=== PATIENT | male | born 1975 | race Caucasian/White ===

== ENCOUNTER 2017-03-28 20:52 | Emergency (ER) | payer BC ==
[~2017-03-28] VITALS: Ht 182.9 cm; Wt 90.0 kg
[2017-03-28 21:02] VITALS: BP 114/55; PULSE 104; RESP 22; TEMP 97.8; O2SAT 96
[2017-03-28] MEDS ORDERED: SODIUM CHLOR 0.9% 1000 ML INJ 1,000 ML IV ONE ×2 (21:04→21:34)
[2017-03-28] MEDS ORDERED: SODIUM CHLORIDE 0.9% FLUSH 10 ML FLUSH IVF PRN (21:15)
[2017-03-28] MEDS ORDERED: MORPHINE SULFATE 4 MG/ML INJ IV PUSH ONE (21:15)
--- NOTE | 2017-03-28 21:29 | PD ---
HPI Chief Complaint: Hip Injury Time Seen by Provider: 21:04 Travel History International Travel<30 days: No Contact w/Intl Traveler<30days: No Traveled to known affect area: No History of Present Illness HPI Patient is a 41-year-old diabetic male presents emergency department for evaluation of right hip pain. Patient states that he was rolling over in bed and felt a pop in his right hip has been having some pain and unable to ambulate since. He does endorse drinking fireball tonight is he is here on his honeymoon. Patient states he does have some pain in the left hip secondary to bursitis and some peripheral neuropathy secondary to diabetes. He denies any injury other than rolling in bed. Denies any headache chest pain shortness breath abdominal pain nausea vomiting diarrhea. PFSH Past Medical History Diabetes: Yes Patient Takes Glucophage: No Past Surgical History Surgical History: No Previous Surgery Social History Alcohol Use: Yes (OCC) Tobacco Use: Yes (1PPD) Substance Use: No Allergies-Medications (Allergen,Severity, Reaction): Coded Allergies: No Known Allergies (Unverified , 03/28/17) Review of Systems Except as stated in HPI: all other systems reviewed are Neg Physical Exam Narrative GENERAL: Well-developed well-nourished, lying on his left side, appears in mild discomfort. SKIN: Focused skin assessment warm/dry. HEAD: Atraumatic. Normocephalic. EYES: Pupils equal and round. No scleral icterus. No injection or drainage. ENT: No nasal bleeding or discharge. Mucous membranes pink and moist. NECK: Trachea midline. No JVD. CARDIOVASCULAR: Regular rate and rhythm. No murmur appreciated. RESPIRATORY: No accessory muscle use. Clear to auscultation. Breath sounds equal bilaterally. GASTROINTESTINAL: Abdomen soft, non-tender, nondistended. Hepatic and splenic margins not palpable. MUSCULOSKELETAL: No obvious deformities. No clubbing. No cyanosis. No edema. Minimal tenderness to the right greater trochanter, no tenderness at the knee. No tenderness of the ankle. Pulses motor and sensory intact distally in all 4 extremities. Left lower extremity is atraumatic. NEUROLOGICAL: Awake and alert. No obvious cranial nerve deficits. Motor grossly within normal limits. Normal speech. PSYCHIATRIC: Appropriate mood and affect; insight and judgment normal. Data Data Last Documented VS Vital Signs Date Time Temp Pulse Resp B/P Pulse Ox O2 Delivery O2 Flow Rate FiO2 03/28/17 23:12 90 15 118/76 99 03/28/17 21:02 97.8 Orders Complete Blood Count With Diff (03/28/17 21:04) Comprehensive Metabolic Panel (03/28/17 21:04) Beta Hydroxybutyrate (Acetone) (03/28/17 21:04) Urinalysis - C+S If Indicated (03/28/17 21:04) Blood Glucose (03/28/17 21:04) Ecg Monitoring (03/28/17 21:04) Iv Access Insert/Monitor (03/28/17 21:04) Oximetry (03/28/17 21:04) NPO (03/28/17 21:04) Sodium Chlor 0.9% 1000 Ml Inj (Ns 1000 M (03/28/17 21:04) Sodium Chlor 0.9% 1000 Ml Inj (Ns 1000 M (03/28/17 21:34) Sodium Chloride 0.9% Flush (Ns Flush) (03/28/17 21:15) Morphine Inj (Morphine Inj) (03/28/17 21:15) Alcohol (Ethanol) (03/28/17 21:04) Hip, Uni(Ap&Lat) W Ap Pelvis (03/28/17 ) Crutches (03/28/17 22:59) Labs Laboratory Tests Test 03/28/17 03/28/17 21:30 21:36 White Blood Count 7.9 TH/MM3 Red Blood Count 4.73 MIL/MM3 Hemoglobin 14.7 GM/DL Hematocrit 42.3 % Mean Corpuscular Volume 89.5 FL Mean Corpuscular Hemoglobin 31.2 PG Mean Corpuscular Hemoglobin 34.8 % Concent Red Cell Distribution Width 12.6 % Platelet Count 169 TH/MM3 Mean Platelet Volume 8.1 FL Neutrophils (%) (Auto) 56.7 % Lymphocytes (%) (Auto) 36.4 % Monocytes (%) (Auto) 5.0 % Eosinophils (%) (Auto) 1.7 % Basophils (%) (Auto) 0.2 % Neutrophils # (Auto) 4.5 TH/MM3 Lymphocytes # (Auto) 2.9 TH/MM3 Monocytes # (Auto) 0.4 TH/MM3 Eosinophils # (Auto) 0.1 TH/MM3 Basophils # (Auto) 0.0 TH/MM3 CBC Comment DIFF FINAL Differential Comment Sodium Level 138 MEQ/L Potassium Level 3.9 MEQ/L Chloride Level 100 MEQ/L Carbon Dioxide Level 25.4 MEQ/L Anion Gap 13 MEQ/L Blood Urea Nitrogen 11 MG/DL Creatinine 0.76 MG/DL Estimat Glomerular Filtration 112 ML/MIN Rate Random Glucose 332 MG/DL Calcium Level 8.5 MG/DL Total Bilirubin 0.2 MG/DL Aspartate Amino Transf 18 U/L (AST/SGOT) Alanine Aminotransferase 31 U/L (ALT/SGPT) Alkaline Phosphatase 363 U/L Total Protein 7.0 GM/DL Albumin 3.8 GM/DL Ethyl Alcohol Level 80 MG/DL B-Hydroxybutyrate 0.29 MMOL/L Urine Color LIGHT-YELLOW Urine Turbidity CLEAR Urine pH 5.5 Urine Specific [place] 1.021 Urine Protein NEG mg/dL Urine Glucose (UA) 1000 mg/dL Urine Ketones NEG mg/dL Urine Occult Blood NEG Urine Nitrite NEG Urine Bilirubin NEG Urine Urobilinogen LESS THAN 2.0 MG/DL Urine Leukocyte Esterase NEG Urine WBC 1 /hpf Urine Mucus FEW /lpf Microscopic Urinalysis Comment CULT NOT INDICATED MDM Medical Decision Making Medical Screen Exam Complete: Yes Emergency Medical Condition: Yes Differential Diagnosis Bursitis, hip fracture, hip dislocation seems unlikely, arthritis. Narrative Course Patient 41-year-old male with a history of bursitis in the left hip presents with right hip pain. Atraumatic in nature. The patient x-ray is reassuring. Basic labs were obtained as he has hyperglycemic and does have alcohol on board. His alcohol level is 80. Labs do not show evidence for DKA and are reassuring. The patient was able to ambulate in the emergency department without issue. His arrives and states that their main reason they came is because it is been difficult for him to ambulate and get up off the ground since the event happened. She was requesting some crutches for them to go home with until they return to [place] where they are from where they have more roomed to move around. I am amenable but I have instructed him to get off the crutches as soon as possible. There is no indication further workup at this time and he is stable for discharge. Diagnosis Primary Impression: Right hip pain Disposition: 01 DISCHARGE HOME Condition: Stable Henri Lombardi MD March 28, 2017 21:29
[2017-03-28 21:48] LABS: BLOOD, URINE NEG (NEG); COMMENT (UR) CULT NOT INDICATED; CULTURE IF INDICATED CULT NOT INDICATED; GLUCOSE,URINE 1000 mg/dL (NEG); KETONE, URINE NEG (NEG); MUCUS URINE FEW /lpf (OCC); NITRITE,URINE NEG (NEG); PH, URINE 5.5 (5.0-8.5); URINE COLOR LIGHT-YELLOW (YELLW/STRAW)
--- NOTE | 2017-03-28 22:11 | RADRPT ---
EXAM DATE/TIME: 03/28/2017 21:18 [facility] COMPARISON: No previous studies available for comparison. INDICATIONS : Right hip pain. Patient rolled over in bed and heard a pop. MEDICAL HISTORY : None. SURGICAL HISTORY : None. ENCOUNTER: Initial ACUITY: 1 day PAIN SCORE: 10/10 LOCATION: Right hip. FINDINGS: Examination of the right hip was performed with AP Pelvis. The primary and secondary trabecular mikel bertha of the femoral neck is intact. The hip joint is of normal width without significant sclerosis or bony hypertrophy. The acetabulum is grossly intact. CONCLUSION: Normal examination for a patient of this age. Noman Huff MD on March 28, 2017 at 22:07 Board Certified Radiologist. This report was verified electronically.
[2017-03-28 22:23] LABS: AUTOMATED NEUTROPHIL # 4.5 TH/MM3 (1.8-7.7); BASOPHIL % 0.2 % (0.0-2.0); EOSINOPHIL # 0.1 TH/MM3 (0-0.4); EOSINOPHIL % 1.7 % (0.0-4.0); HEMATOCRIT 42.3 % (39.0-51.0); HEMO FLAGS DIFF FINAL; LYMPH % 36.4 % (9.0-44.0); LYMPHOCYTE # 2.9 TH/MM3 (1.0-4.8); MEAN CELL VOLUME 89.5 FL (80.0-100.0); MEAN CORPUSCULAR HEMOGLOBIN 31.2 PG (27.0-34.0); MEAN CORPUSCULAR HGB CONC 34.8 % (32.0-36.0); NEUT % 56.7 % (16.0-70.0); PLATELET COUNT 169 TH/MM3 (150-450); RED BLOOD COUNT 4.73 MIL/MM3 (4.50-5.90); RED CELL DISTRIBUTION WIDTH 12.6 % (11.6-17.2); WHITE BLOOD COUNT 7.9 TH/MM3 (4.0-11.0)
[2017-03-28 22:27] LABS: ALKALINE PHOSPHATASE 363 U/L (45-117); ALT (GPT) 31 U/L (12-78); ANION GAP 13 MEQ/L (5-15); AST (GOT) 18 U/L (15-37); BETA-HYDROXYBUTYRATE 0.29 MMOL/L (0.00-0.39); BICARBONATE 25.4 MEQ/L (21.0-32.0); BLOOD UREA NITROGEN 11 MG/DL (7-18); CHLORIDE 100 MEQ/L (98-107); GLOMERULAR FILTRATION RATE 112 ML/MIN (>89); POTASSIUM 3.9 MEQ/L (3.5-5.1); SODIUM (NA) 138 MEQ/L (136-145); TOTAL BILIRUBIN ADULT 0.2 MG/DL (0.2-1.0)
[2017-03-28 23:12] VITALS: BP 118/76
== END 2017-03-28 23:12 | disposition home or self-care (01) ==
LOC: NEPC 20:52
DX: M25.551 Pain in right hip (principal); E11.42 Type 2 diabetes mellitus with diabetic polyneuropathy; F17.210 Nicotine dependence, cigarettes, uncomplicated; M71.9 Bursopathy, unspecified
CPT/HCPCS: 73502; 80053; 80307; 81001; 82010; 85025; 96361; 96374; 99284; E0113; J2270; J7030

== ENCOUNTER 2018-04-15 02:54 | Inpatient (IN) | payer BC ==
[~2018-04-15] VITALS: Ht 185.4 cm; Wt 91.5 kg
[2018-04-15] VITALS (30 sets, daily range): BP systolic 97–126; BP diastolic 55–84; PULSE 63–100; RESP 14–20; TEMP 97.8–98.6; O2SAT 90–99
[2018-04-15] MEDS ORDERED: HEPARIN SODIUM - IV 10,000 UNITS/10 ML VIAL IV PUSH STA (02:58)
--- NOTE | 2018-04-15 03:11 | RADRPT ---
EXAM DATE: 04/15/2018 3:06 AM EDT AGE/SEX: 42 years / Male INDICATIONS: Chest pain, STEMI-Alert. CLINICAL DATA: This is the patient's initial encounter. Patient reports that signs and symptoms have been present for 1 day and indicates a pain score of 10/10. MEDICAL/SURGICAL HISTORY: Non-responsive. Non-responsive. COMPARISON: No prior [facility] exams available for comparison. FINDINGS: The heart size is normal. There is increased density at the right midlung. The left lung is clear. No effusion is seen. CONCLUSION: Small patchy area density in the right midlung. This could represent a mild area of consolidation. Electronically signed by: Jeremi Mark MD 04/15/2018 3:09 AM EDT
[2018-04-15] MEDS ORDERED: METF1000 PO (03:12)
[2018-04-15] MEDS ORDERED: NOVOLOGP2 SQ (03:12)
[2018-04-15] MEDS ORDERED: INSU1INJ14 SQ (03:12)
[2018-04-15] MEDS ORDERED: MORPHINE SULFATE 2 MG/ML SYRINGE IV PUSH ONE (03:15)
[2018-04-15] MEDS ORDERED: MORPHINE SULFATE 4 MG/ML INJ ONE (03:18)
[2018-04-15 03:19] LABS: BASOPHIL % 0.6 % (0.0-2.0); EOSINOPHIL # 0.2 TH/MM3 (0-0.4); EOSINOPHIL % 2.5 % (0.0-4.0); HEMATOCRIT 40.5 % (39.0-51.0); HEMOGLOBIN 13.9 GM/DL (13.0-17.0); LYMPH % 37.3 % (9.0-44.0); LYMPHOCYTE # 2.9 TH/MM3 (1.0-4.8); MEAN CELL VOLUME 89.5 FL (80.0-100.0); MEAN CORPUSCULAR HEMOGLOBIN 30.6 PG (27.0-34.0); MEAN CORPUSCULAR HGB CONC 34.2 % (32.0-36.0); MEAN PLATELET VOLUME 8.1 FL (7.0-11.0); MONO % 7.1 % (0.0-8.0); MONOCYTE # 0.5 TH/MM3 (0-0.9); NEUT % 52.5 % (16.0-70.0); PLATELET COUNT 180 TH/MM3 (150-450); RED BLOOD COUNT 4.53 MIL/MM3 (4.50-5.90); WHITE BLOOD COUNT 7.6 TH/MM3 (4.0-11.0)
[2018-04-15] MEDS ORDERED: HEPARIN-NS/PF INJ 1,500 ML ONE (03:31)
[2018-04-15 03:32] LABS: INTERNATIONAL NORMALIZED RATIO 0.9 RATIO; PROTHROMBIN TIME - PATIENT 9.4 SEC (9.8-11.6)
[2018-04-15 03:36] LABS: CALCIUM 8.2 MG/DL (8.5-10.1); MAGNESIUM 1.7 MG/DL (1.5-2.5)
--- NOTE | 2018-04-15 03:36 | PD ---
HPI Chief Complaint: STEMI Alert Time Seen by Provider: 02:58 Travel History International Travel<30 days: No Contact w/Intl Traveler<30days: No Traveled to known affect area: No History of Present Illness HPI 42-year-old male with history of diabetes mellitus, tobacco use, presents today with complaints of left-sided chest pain. Patient is visiting here from [place]. He was at the hotel when he started experiencing left-sided chest pain and heaviness. When paramedics arrived they did a 12-lead found a inferior STEMI. Patient was given aspirin and nitroglycerin. His pressure did drop into the 80s systolic and a fluid bolus was initiated. Patient arrived he describes the pain as heavy and 2-3 out of 10 on the pain scale. There is no radiation. There is mild nausea no diaphoresis. PFSH Past Medical History Cardiac Catheterization: Yes Diabetes: Yes Patient Takes Glucophage: Yes Influenza Vaccination: No Past Surgical History Eye Surgery: Yes (CATARACTS BILATERAL) Social History Alcohol Use: Yes (OCC) Tobacco Use: Yes (1PPD) Substance Use: No Allergies-Medications (Allergen,Severity, Reaction): Coded Allergies: No Known Allergies (Unverified Adverse Reaction, Unknown, 04/15/18) Reported Meds & Prescriptions Reported Meds & Active Scripts Active Reported Tresiba Flextouch Pen Inj (Insulin Degludec Inj) 300 unit/3 ML Pen 32 Units SQ HS Novolog Inj (Insulin Aspart) 1,000 Unit/10 Ml Vial 10 Units SQ Metformin (Metformin HCl) 1,000 Mg Tab Unknown Dose PO BIDPC Review of Systems Except as stated in HPI: all other systems reviewed are Neg General / Constitutional: No: Fever, Chills HENT: No: Headaches, Neck Pain Cardiovascular: Positive: Chest Pain or Discomfort, No: Palpitations, Irregular Rhythm Respiratory: No: Cough, Shortness of Breath Gastrointestinal: Positive: Nausea, No: Vomiting, Abdominal Pain Musculoskeletal: No: Weakness, Pain Neurologic: No: Weakness, Dizziness, Headache Psychiatric: No: Substance Abuse Physical Exam Narrative GENERAL: Well-developed well-nourished male in no acute respiratory distress. SKIN: Focused skin assessment warm/dry. HEAD: Atraumatic. Normocephalic. EYES: Pupils equal and round. No scleral icterus. No injection or drainage. ENT: No nasal bleeding or discharge. Mucous membranes pink and moist. NECK: Trachea midline. No JVD. Supple. CARDIOVASCULAR: Regular rate and rhythm. No murmur appreciated. RESPIRATORY: No accessory muscle use. Clear to auscultation. Breath sounds equal bilaterally. GASTROINTESTINAL: Abdomen soft, non-tender, nondistended. Hepatic and splenic margins not palpable. MUSCULOSKELETAL: No obvious deformities. No clubbing. No cyanosis. No edema. NEUROLOGICAL: Awake and alert. No obvious cranial nerve deficits. Motor grossly within normal limits. Normal speech. Data Data Last Documented VS Vital Signs Date Time Temp Pulse Resp B/P (MAP) Pulse Ox O2 Delivery O2 Flow Rate FiO2 04/15/18 03:13 94 16 118/59 (78) 98 Room Air 04/15/18 03:10 3.00 04/15/18 02:56 97.8 Orders Orders Troponin I (04/15/18 02:56) Ckmb (Isoenzyme) Profile (04/15/18 02:56) Complete Blood Count With Diff (04/15/18 02:56) I-Stat Profile (04/15/18 02:56) I-Stat Creatinine (04/15/18 02:56) Calcium (04/15/18 02:56) Magnesium (Mg) (04/15/18 02:56) Prothrombin Time / Inr (Pt) (04/15/18 02:56) Act Partial Throm Time (Ptt) (04/15/18 02:56) B-Type Natriuretic Peptide (04/15/18 02:56) Chest, Single Ap (04/15/18 02:56) Electrocardiogram (04/15/18 02:56) Oxygen Administration (04/15/18 02:56) Iv Access Insert/Monitor (04/15/18 02:56) Oximetry (04/15/18 02:56) Heparin Inj (Heparin Inj) (04/15/18 02:58) Morphine Inj (Morphine Inj) (04/15/18 03:15) Admit Order (Ed Use Only) (04/15/18 03:16) Morphine Inj (Morphine Inj) (04/15/18 03:18) Labs Laboratory Tests Test 04/15/18 03:00 White Blood Count 7.6 TH/MM3 Red Blood Count 4.53 MIL/MM3 Hemoglobin 13.9 GM/DL Bedside Hemoglobin 12.9 G/DL Hematocrit 40.5 % Bedside Hematocrit 38.0 % Mean Corpuscular Volume 89.5 FL Mean Corpuscular Hemoglobin 30.6 PG Mean Corpuscular Hemoglobin Concent 34.2 % Red Cell Distribution Width 13.0 % Platelet Count 180 TH/MM3 Mean Platelet Volume 8.1 FL Neutrophils (%) (Auto) 52.5 % Lymphocytes (%) (Auto) 37.3 % Monocytes (%) (Auto) 7.1 % Eosinophils (%) (Auto) 2.5 % Basophils (%) (Auto) 0.6 % Neutrophils # (Auto) 4.0 TH/MM3 Lymphocytes # (Auto) 2.9 TH/MM3 Monocytes # (Auto) 0.5 TH/MM3 Eosinophils # (Auto) 0.2 TH/MM3 Basophils # (Auto) 0.0 TH/MM3 CBC Comment DIFF FINAL Differential Comment Bedside Sodium 140 MMOL/L Bedside Potassium 3.5 MMOL/L Bedside Chloride 99 MMOL/L Bedside Blood Urea Nitrogen 16 MG/DL Bedside Creatinine 0.7 MG/DL Bedside Glucose 295 MG/DL MDM Medical Decision Making Medical Screen Exam Complete: Yes Emergency Medical Condition: Yes Differential Diagnosis STEMI versus muscular skeletal pain versus GERD Narrative Course 42-year-old male presents with acute ST elevation [place]. Patient is inferior ST elevation with lateral involvement. The patient was given aspirin in the field. He was given nitroglycerin which dropped his pressure. Patient was a 2- 3 out of [address] on the pain scale. Dr. Wong Polanco, on-call quality intern, has come to see the patient and is taking him to the [facility] emerg[facility]. Patient received a heparin bolus prior to departure. Diagnosis Primary Impression: Acute inferior lateral ST elevation myocardial infarction Additional Impressions: Diabetes mellitus Tobacco abuse Admitting Information Admitting Physician Requests: Admit Dimas Huggins MD Apr 15, 2018 03:36
[2018-04-15 03:39] LABS: TROPONIN I 0.2 NG/ML (0.02-0.05)
[2018-04-15] MEDS ORDERED: MORPHINE SULFATE 10 MG/ML INJ ONE (03:42)
[2018-04-15] MEDS ORDERED: BIVALIRUDIN 250 MG VIAL ONE (03:52)
[2018-04-15] MEDS ORDERED: TICAGRELOR 90 MG TAB PO ONE (04:08)
[2018-04-15] MEDS ORDERED: PHENYLEPHRINE HCL 10 MG/ML VIAL ONE (04:11)
--- NOTE | 2018-04-15 05:01 | CATHPROC ---
[facility] HIS Report Study Information Study Number Admission Scheduled Start Study Start [id number] Apr 15 2018 3:18AM 04/15/2018 Apr 15 2018 3:35AM [place] [facility] Cardiac Catheterization Admit Source Facility Department Emergency department [facility] - [facility] [employer] Physician and Clinical Staff Initial MD Polanco, Wong Inbound Sales Advisorbelgica Diaz RN, Jono Inbound Sales AdvisorJosie Lopez RecordMicky Erickson,RT(R) ScrNya Jaquez,RT(R) (BS) Procedures Performed Procedure Location (Site) Vessel Name Angiogram LV LV Ventricle Coronary Angiograms LCA Left Coronary Coronary Angiograms RCA Right Coronary Drug Eluting Inflatio RCA Mid Right Coronary L Heart Cath PTCA RCA Mid Right Coronary Wire insertion Fem Art (right) Femoral Art Equipment Time Jump Iron Machine Presser Description Size Mfg Part Number Used/Scraped WIRE, BALANCE MIDDLEWEIGHT [id number] 03:52 [employer] 190CM Used 190CM *[id number] TRANSDUCER, TRUWAVE [id number] 03:46 FLORES PRIETO * Used W/STOCKCOCK *[id number] 03:55 CORDIS/ DRISS JR 4.0 GUIDE CATHETER 55CM FR 6 Used *[id number] *[id number] PIGTAIL ANG. 145 INFINITI 534-652S CATHETER *[id number] [id number] *[id number] 04:25 DAIG/ST. SAMINA MEDICAL ANGIOSEAL, FR6 VIP FR 6 Used *[id number] 03:46 MEDLINE IND[employer]RIES PACK, CCL CUSTOM * Used *[id number] 03:46 [employer] PACER PEN, SKIN DUAL W/ RULER * Used *[id number] 03:58 MEDTRONIC BALLOON, 3.0 X 15MM EUPHORA 15MM Used *[id number] BALLOON, 4.0 X 15MM NC [id number] 04:05 MEDTRONIC 15MM Used EUPHORA *[id number] 04:00 MEDTRONIC STENT, 4.0 15MM KVNG 4.0 15MM Used *[id number] 03:58 [employer] MEDICAL 30 MARJ INDEFLATOR Used *[id number] 03:46 [employer] MEDICAL SHEATH, FR6.5 PRELUDE 11CM FR 6.5 038ACT Used *[id number] 03:46 [employer] WIRE, 3MMJ .035 180CM 180CM Used *[id number] 03:46 NAMIC MANIFOLD, 4 PORT * Used *[id number] 03:46 NYCOMED OMNIPAQUE, 350 MG, 150ML 150ML [id number] Used 04:18 NYCOMED OMNIPAQUE, 350 MG, 50ML 50ML [id number] Used [id number] 03:46 [employer] MEDICAL BLANKET,WARM AIR CCL * Used *[id number] Equipment Model, Serial, Lot Number and Expiration Data Description Model Number Serial Number Lot Number Expiration Date STENT, 4.0 15MM KVNG [id number] 10-20-2019 History: Current Medications Medication Dosage/Unit Route Frequency Last Date/Time Taken Glucophage History: Allergies Allergy Reaction No Known Allergies History: Risk Factors Family History of Hypertension Dyslipidemia Previous [place] Previous Heart Failure Premature CAD No No No No No Prior Valve Prior PCI Prior CABG Surgery No No No Cerebrovascular Peripheral Artery Chronic Lung On Dialysis Diabetes Diabetes Therapy Disease Disease Disease No No No No Yes Oral History: Risk Factors Selection Items Current Smoker Diabetes History: Symptoms/Diagnosis Selection Items Chest pain History: Stress Tests Stress or Imaging Studies Performed No History: Other Current Smoker Method Packs a Day Years Used Pack Years Yes Cigarettes 12 10 27 Labs Hgb (g/dl) Hct (%) RBC (MIL/MM3) WBC (l/cumm) Platelets (thousands) 11.60-17.00 35.00-51.00 4.00-5.90 4.00-11.00 150.00-450.00 13.9 40.5 4.5 7.6 180 Glucose (mg/dl) BUN (mg/dl) Creatinine (mg/dl) BUN:Creatinine (1:x) 74.00-106.00 7.00-18.00 0.50-1.30 10.00-20.00 295 16 0.7 22.9 Na (meq/l) K (meq/l) Cl (meq/l) 136.00-145.00 3.50-5.10 98.00-107.00 140 3.5 99 CPK-MB (ng/ML) 0.50-3.60 Not Drawn Medication Medication Total Dose (Bolus/Oral) Medication Total Dosage/Unit 1% XYLOCAINE 20 mL ANGIOMAX BOLUS 14 mL BRILLINTA 180 mg MORPHINE 4 mg Medications (Bolus/Oral) Medication Time Given Dosage/Unit Administered By Reason MORPHINE 04/15/2018 3:45:00 AM 4 mg Jono Diaz RN 4 mg MORPHINE given in lab by Jono Diaz RN in Right Wrist via Peripheral IV. 1% XYLOCAINE 04/15/2018 3:45:25 AM 20 mL Wong Polanco 20 mL 1% XYLOCAINE given in lab by Wong Polanco in Right Groin via Subcutaneous. ANGIOMAX BOLUS 04/15/2018 3:55:29 AM 14 mL Jono Diaz RN Patient arrived on 14 mL ANGIOMAX BOLUS given by Jono Diaz RN in Right Wrist via Peripheral IV. BRILLINTA 04/15/2018 4:35:03 AM 180 mg Josie Nixon 180 mg BRILLINTA given in lab by Josie Nixon in Per mouth via Oral. Medication (Drip) Medication Time Given Dosage/Unit Concentration/Unit Diluent (ml) Solutio n ANGIOMAX DRIP 04/15/2018 3:58:51 AM 1.75 mg/kg/hr 250 mg 50 NaCl .9 1.75 mg/kg/hr ANGIOMAX DRIP given in lab by Jono Diaz RN in Right Wrist via Peripheral IV. Pump/Dr ip Flow = 32.62 ml/hr using NaCl .9 with a concentration of 250 mg in 50 ml. Ordered by Wong Polanco. IV Solutions 04/15/2018 3:41:00 AM 0 mL (IV) 500 NaCl .9 Patient arrived on IV Solutions in Right Wrist via Peripheral IV. Pump/Drip Flow = 20 ml/hr using NaC l .9. BRET-SYNEPHRINE 04/15/2018 4:10:44 AM 100 mcg/min 10 mg 250 D5W 100 mcg/min BRET-SYNEPHRINE given in lab by Jono Diaz RN in Right Wrist via Peripheral IV. Pump/Dri p Flow = 150 ml/hr using D5W with a concentration of 10 mg in 250 ml. Ordered by Wong Polanco. Initial Case Assessment Cardiovascular HR Rhythm NIBP 94 Irregular 126/84 Edema Present Skin color Skin None Normal Warm Dry Circulatory - Right Pulses Dorsalis Pedis Femoral 2 2 Scale (0,1,2,3,4,d) Circulatory - Left Pulses Dorsalis Pedis Femoral 2 2 Scale (0,1,2,3,4,d) Neurological State Oriented to time-place- Alert Moves all extremities person Respiration - General Respiration Rate SpO2 (%) O2 (lpm) (B/min) 37 99 2 Final Case Assessment Cardiovascular HR Rhythm NIBP Chest Pain 100 Sinus 120/79 0 Edema Present Skin color Skin None Normal Warm Dry Circulatory - Right Pulses Dorsalis Pedis Femoral 2 2 Scale (0,1,2,3,4,d) Circulatory - Left Pulses Dorsalis Pedis Femoral 2 2 Scale (0,1,2,3,4,d) Neurological State Oriented to time-place- Alert Moves all extremities person Respiration - General Respiration Rate SpO2 (%) O2 (lpm) (B/min) 19 99 2 Chronological Log Time Study Chronological Log 3:32:55 MD arrived. 3:34:36 Patient arrived via Bed. 3:34:37 Patient Name, D.O.B, / Armband Verified By R.N. 3:34:38 Consent signed by the physician and the patient and verified by the [employer] [employer] staff. 3:34:39 Verbal Stimulation=2 Physical Stimulation=2 Airway=2 Respiration=2 TOTAL=8. (0=absent, 1=li mited, 2=present) 3:34:39 Pre-op and post- op instructions given; patient acknowledges understanding of instructions. 3:40:36 Immediate Presedation assesment performed by physician. 3:40:37 Patient has been NPO for Less than 6Hrs. 3:40:38 Skin Breakdown- none apparent. 3:40:41 Patient Warmer Placed on the Table. 3:40:43 Shellie Prominences Protected 3:40:44 A # 20 IV was noted in the Wrist (right). Grade = 0 3:41:00 Patient arrived on IV Solutions in Right Wrist via Peripheral IV. Pump/Drip Flow = 20 ml/hr using NaCl .9. 3:41:28 History and physical on the chart or being dictated. Assessment: Initial Case, HR=94 BPM, Rhythm=Irregular, MAOG=758/84 mmhg, Edema=None, Color=Norm al, Skin = Warm, Dry Right Pulses: Desmond Ped=2, Femoral=2 3:41:28 Left Pulses: Desmond Ped=2, Femoral=2 Neurological: State=Alert, Ox3, IRBY Respiration: Resp=37 B/min, SpO2=99 %, O2=2 lpm Vitals capture started with the following parameters, Patient=Adult, Interval=5 min, Initial Pre lvllr=283 mmHg, 3:41:39 Deflation Rate=5 mmHg, Cuff placed on Right Arm 3:42:18 WP=902 bpm, WGEQ=468/84 mmhg, SpO2=99.0 %, Resp=35 B/min, Pain=9, Bouchra=10, Frank=3 3:42:32 Bilateral groins prepped with 2% chlorhexidine, and draped after a 3 minute waiting time. 3:43:18 Case Start 3:45:00 4 mg MORPHINE given in lab by Jono Diaz RN in Right Wrist via Peripheral IV. 3:45:25 20 mL 1% XYLOCAINE given in lab by Wong Polanco in Right Groin via Subcutaneous. 3:45:28 Access site was Right Femoral Artery. 3:45:29 A SHEATH, FR6.5 PRELUDE 11CM FR 6.5 was advanced into the Fem Art (right) using the Percutan eous technique. 3:45:33 Reference ECG taken 3:45:38 Pressure channel 1 zeroed. A JL 5.0 INFINITI CATHETER FR 5 was advanced over a wire. OMNIPAQUE, 350 MG, 150ML 150ML was use d for 3:46:26 injections. 3:47:17 JV=853 bpm, IBAK=136/81 mmhg, SpO2=99.0 %, Resp=12 B/min, Pain=9, Bouchra=10, Frank=3 Recorded Pressure: Ao, HR=95, Condition=Condition 1 3:47:36 (Aorta) Ao 106/67/86 3:47:55 Catheter was removed A JL 4.0 INFINITI CATHETER FR 5 was advanced over a wire. OMNIPAQUE, 350 MG, 150ML 150ML was use d for 3:48:17 injections. 3:50:02 The LCA was injected and visualized at various angles. OMNIPAQUE, 350 MG, 150ML 150ML used. 3:51:28 Catheter was removed 3:52:16 HR=92 bpm, XSHH=590/80 mmhg, SpO2=99.0 %, Resp=41 B/min, Pain=9, Bouchra=10, Frank=3 A JR 4.0 GUIDE CATHETER 55CM FR 6 was advanced over a wire. OMNIPAQUE, 350 MG, 150ML 150ML was u sed for 3:52:29 injections. 3:53:54 A WIRE, BALANCE MIDDLEWEIGHT 190CM 190CM was inserted via Fem Art (right). 3:55:29 Patient arrived on 14 mL ANGIOMAX BOLUS given by Jono Diaz RN in Right Wrist via Peripher al IV. 3:56:35 Interventional wire has crossed the lesion A BALLOON, 3.0 X 15MM EUPHORA 15MM was inserted over WIRE, BALANCE MIDDLEWEIGHT 190CM 190CM via the 3:57:01 RCA Mid. 3:57:17 HR=93 bpm, XWWW=784/77 mmhg, SpO2=99.0 %, Resp=24 B/min, Pain=9, Bouchra=10, Frank=3 A BALLOON, 3.0 X 15MM EUPHORA 15MM over a WIRE, BALANCE MIDDLEWEIGHT 190CM 190CM in the RCA Mid was 3:57:56 inflated using a 30 MARJ INDEFLATOR at 8 marj for 13 sec. A BALLOON, 3.0 X 15MM EUPHORA 15MM over a WIRE, BALANCE MIDDLEWEIGHT 190CM 190CM in the RCA Mid was 3:58:00 inflated using a 30 MARJ INDEFLATOR at 8 marj for 15 sec. 1.75 mg/kg/hr ANGIOMAX DRIP given in lab by Jono Diaz RN in Right Wrist via Peripheral IV. Pu mp/Drip Flow = 3:58:51 32.62 ml/hr using NaCl .9 with a concentration of 250 mg in 50 ml. Ordered by Wong Polanco. 3:59:18 Balloon Removed. A STENT, 4.0 15MM KVNG 4.0 15MM was advanced through a JR 4.0 GUIDE CATHETER 55CM FR 6 over a WI RE, 4:01:04 BALANCE MIDDLEWEIGHT 190CM 190CM. A STENT, 4.0 15MM KVNG 4.0 15MM was deployed using a 30 MARJ INDEFLATOR at 8 atmospheres for 35 s econds in 4:02:06 the RCA Mid. 4:02:18 KP=035 bpm, ONVV=511/77 mmhg, SpO2=99.0 %, Resp=24 B/min, Pain=9, Bouchra=10, Frank=3 4:02:43 Delivery device removed 4:04:00 The RCA was injected and visualized at various angles. OMNIPAQUE, 350 MG, 150ML 150ML used. A BALLOON, 4.0 X 15MM NC EUPHORA 15MM was inserted over WIRE, BALANCE MIDDLEWEIGHT 190CM 190CM v ia 4:06:32 the RCA Mid. A BALLOON, 4.0 X 15MM NC EUPHORA 15MM over a WIRE, BALANCE MIDDLEWEIGHT 190CM 190CM in the RCA M id 4:06:43 was inflated using a 30 MARJ INDEFLATOR at 12 marj for 20 sec. 4:07:19 HR=76 bpm, IKZK=188/65 mmhg, SpO2=99.0 %, Resp=22 B/min, Pain=9, Bouchra=10, Frank=3 4:08:09 Balloon Removed. 4:08:55 The RCA was injected and visualized at various angles. OMNIPAQUE, 350 MG, 150ML 150ML used. 4:10:01 Wire removed 4:10:05 Catheter was removed A JL 4.0 INFINITI CATHETER FR 5 was advanced over a wire. OMNIPAQUE, 350 MG, 150ML 150ML was use d for 4:10:23 injections. 100 mcg/min BRET-SYNEPHRINE given in lab by Jono Diaz RN in Right Wrist via Peripheral IV. Pum p/Drip Flow = 150 4:10:44 ml/hr using D5W with a concentration of 10 mg in 250 ml. Ordered by Wong Polanco. 4:12:49 HR=79 bpm, EDFB=618/90 mmhg, ZoP7=907.0 %, Resp=20 B/min, Pain=9, Bouchra=10, Frank=3 4:12:52 The LCA was injected and visualized at various angles. contrast used. 4:17:17 HR=87 bpm, IFLJ=808/89 mmhg, SpO2=99.0 %, Resp=23 B/min, Pain=9, Bouchra=10, Frank=3 A PIGTAIL ANG. 145 INFINITI CATHETER FR 6 was advanced over a wire. OMNIPAQUE, 350 MG, 50ML 50ML was used 4:17:41 for injections. Recorded Pressure: LV, HR=63, Condition=Condition 1 4:20:13 (Left Ventricle) LV 112/9/49 4:21:05 The LV was injected at 10 cc/sec for a total of 30. OMNIPAQUE, 350 MG, 50ML 50ML used. Recorded Pressure: LV, Ao, HR=88, Condition=Condition 1 4:21:42 (Left Ventricle) LV 113/9/24, (Aorta) Ao 117/69/92 4:22:04 Catheter was removed 4:22:20 HR=87 bpm, LUXU=315/76 mmhg, SpO2=99.0 %, Resp=22 B/min, Pain=9, Bouchra=10, Frank=3 4:23:58 An injection in the Fem Art (right) was made through the SHEATH, FR6.5 PRELUDE 11CM FR 6.5. 4:24:26 ANGIOSEAL, FR6 VIP FR 6 placement in the Fem Art (right) 4:26:50 Angiomax stopped 4:27:17 HR=87 bpm, FYBX=021/80 mmhg, SpO2=99.0 %, Resp=19 B/min, Pain=9, Bouchra=10, Frank=3 4:28:32 Case End 4:29:17 No case complications noted. 4:29:19 Cine recording checked. 4:30:07 Bedside Report will be given. 4:30:13 A Left Heart Cath was performed. 4:32:18 HR=98 bpm, JIHT=679/79 mmhg, SpO2=98.0 %, Resp=20 B/min, Pain=9, Bouchra=10, Frank=3 Assessment: Final Case, IY=248 BPM, Rhythm=Sinus, HTWV=907/79 mmhg, Chest Pain=0, Edema=None, Color=Normal, Skin = Warm, Dry Right Pulses: Desmond Ped=2, Femoral=2 4:33:49 Left Pulses: Desmond Ped=2, Femoral=2 Neurological: State=Alert, Ox3, IRBY Respiration: Resp=19 B/min, SpO2=99 %, O2=2 lpm 4:35:03 180 mg BRILLINTA given in lab by Josie Nixon in Per mouth via Oral. 4:36:54 Closure device did not deploy. Pressure held. 4:37:19 HR=92 bpm, GNXJ=445/77 mmhg, SpO2=99.0 %, Resp=20 B/min, Pain=9, Bouchra=10, Frank=3 4:39:49 Sterile dressing applied to site 4:40:02 Implantable Device card placed in patient's chart. 4:41:58 Vitals capture stopped. 4:44:29 Patient moved to stretcher End Study - Contrast Media Used In Study Contrast Total Opened (mL) Total Used (mL) Total Wasted (mL) Omnipaque 200 165 35 End Study - Maximum Contrast Load Max Contrast Load (mL) 665.6 End Study - Radiation Exposure Fluoro Time (minutes) 9.7 End Study - Patient Disposition Complications Transferred To Interventional Outcome No Telemetry Bed successful
[2018-04-15] MEDS: SODIUM CHLOR 0.9% 1000 ML INJ 1,000 ML IV SCH ×2 (05:06→15:25)
[2018-04-15] MEDS ORDERED: SODIUM CHLORIDE 0.9% FLUSH 10 ML FLUSH IV FLUSH PRN (05:15)
[2018-04-15] MEDS ORDERED: TEMAZEPAM 15 MG CAP PO PRN (05:15)
[2018-04-15] MEDS ORDERED: METOCLOPRAMIDE HCL 10 MG/2 ML VIAL IV PUSH PRN (05:15)
[2018-04-15] MEDS ORDERED: MISC INFORMATION XX ONE (05:15)
[2018-04-15] MEDS ORDERED: ACETAMINOPHEN 325 MG TAB PO PRN (05:15)
[2018-04-15] MEDS ORDERED: oxyCODONE/ACETAMINOPHEN 5 MG/325 MG TAB PO PRN (05:15)
--- NOTE | 2018-04-15 08:25 | MA ---
cc: Wong Polanco MD DATE: 04/15/2018 PREOPERATIVE DIAGNOSIS: Inferior STEMI. PROCEDURES PERFORMED Left heart catheterization, left ventriculography, coronary angiography, balloon angioplasty and stenting of the mid right coronary artery, right femoral angiography with Angio-Seal placement. DESCRIPTION OF PROCEDURE: The patient was brought to the cardiac catheterization lab under emergent conditions with an inferior STEMI. The right groin was prepped and draped in sterile fashion. He was having 10/[address] elevation. Using 1% lidocaine for local anesthesia, a 6-1/2 English sheath was inserted in the right femoral artery requiring only a single femoral stick. Left coronary angiography was attempted with a left 5, but was too large and so I used a left 4 Amari to get one COLE view. I then went with a JR4 guide and imaged the right coronary artery. The mid right coronary artery was occluded. With some mild difficulty, I was able to cross the occlusion with a BMW wire. I predilated the vessel with a 3.0 balloon. I then stented it with a 4.0 x 15 mm [place] stent at 8 atmospheres. I postdilated the central portion of the stent with a 4.0 x 12 mm NC balloon at 12 atmospheres. Angiography demonstrated a good result. The guiding catheter was removed. I then went back with a left 4 Amari and obtained additional angiograms of the left coronary artery. I then used an angled pigtail catheter to measure left ventricular pressure followed by left ventriculography and then a pullback. I then imaged the right coronary artery via the sheath, followed by Angio-Seal closure. There was significant oozing of the sheath, but after manual pressure for a while, the oozing stopped. Angiomax was turned off; however, due to the oozing. The patient was loaded with Brilinta. Will continue on aspirin 81 mg and Brilinta. I will introduce KONSTANTIN inhibitors and beta blockers as hemodynamics permit, to do statin therapy. The patient was counseled to quit smoking. FINDINGS: HEMODYNAMICS: 1. Left ventricular pressure is 113/9 with an end diastolic pressure of 24. Aortic pressure is 117/69 with a mean of 92. There was no gradient during pullback from the left ventricle to the aorta. 2. Left ventriculography: Left ventriculography shows severe posterobasal diaphragmatic hypokinesis. Estimated ejection fraction is 45%. There is no mitral regurgitation seen. 3. Coronary angiography: Left main coronary artery is somewhat large and long. Distally, the distal left main has an eccentric stenosis. In some views it is 50%. In the COLE views it is not as detectable. Overall, I think the severity is about 40%. It bifurcates into the LAD and circumflex vessels. The LAD looks normal proximally. After the last diagonal branch the LAD comes off at about a 90-degree angle from the diagonal branch and has focal stenosis that are about 50%. The distal LAD had a small not much bigger than 1 mm, which makes future bypass difficult. The circumflex artery is a small caliber vessel with a 70% proximal stenosis. Circumflex artery basically consist of 1 vessel, ending in an obtuse marginal branch. Circumflex vessel is not much bigger than a 20-25 vessel and distally is also small caliber. The right coronary artery was totally occluded in the mid segment with thrombus. RESULTS OF STENTING: Following stenting of the mid right coronary artery, a 0% residual stenosis was seen. Proximal to the stent, there is an area of 25% stenosis. Distal to the stent, there was an area of 25% stenosis. The stent, however, does not extend into these segments. The remainder of the distal right coronary artery is dominant with mild irregularities. CONCLUSIONS: 1. Mildly impaired LV function with inferior hypokinesis. 2. Mildly elevated left ventricular end-diastolic pressure. 3. 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 PLAN: We will continue medical management for now. Down the road, it is possible he could require intervention on the circumflex artery. His left main, if it progresses any at all, will push him over to where he will need bypass surgery. This is now the patient's second catheterization procedure and he continues to smoke. Hopefully, after this procedure he will quit smoking. Wong Polanco MD VEW/TL , 04:58 AM , 08:24 AM
[2018-04-15] MEDS ORDERED: DEXTROSE 50% IN WATER 50 ML VIAL(D50) IV PUSH PRN (08:30)
[2018-04-15] MEDS ORDERED: GLUCAGON 1 MG/ML VIAL OTHER PRN (08:30)
[2018-04-15] MEDS: SODIUM CHLORIDE 0.9% FLUSH 10 ML FLUSH IV FLUSH SCH ×2 (09:00→21:01)
[2018-04-15] MEDS ORDERED: IOHEXOL 350 MG/ML 100 ML BTL (for Cath Lab) OTHER ONE (09:25)
[2018-04-15] MEDS: ASPIRIN 81 MG CHEW TAB PO SCH (09:28)
[2018-04-15] MEDS: INSULIN DETEMIR 100 UNITS/ML VIAL SQ SCH ×2 (09:28→21:00)
[2018-04-15] MEDS: LISINOPRIL 5 MG TAB PO SCH (09:29)
[2018-04-15] MEDS: METOPROLOL TARTRATE 25 MG TAB PO SCH ×2 (09:29→21:00)
[2018-04-15 10:29] LABS: HEMOGLOBIN A1C 11.7 % (4.3-6.0)
[2018-04-15] MEDS ORDERED: CYCLOBENZAPRINE HCL 10 MG TAB PO PRN (12:15)
--- NOTE | 2018-04-15 12:23 | PD.CONS ---
[facility] By Dr. Polanco Reason for Consult Medical management, assumption of care Primary Care Physician Unknown Diagnoses: History of Present Illness 42 YOWM with history of DM and tobacco abuse admitted overnight as a STEMI alert after waking up with left-sided chest pain and heaviness. When EMS arrived he was found to have an inferior STEMI on EKG and he was given nitro and ASA. He was started on a heparin drip and cardiology was notified. He was emergently taken to the tutorial laboratory supervisor earlier this morning with stenting of the RCA. Upon examination, he was laying flat and complaining of pain in his upper back which he attributed to his position. He had just been given a Percocet and was waiting for it to take effect. He otherwise had no other complaints. He denies any further chest pain. He denies shortness of breath, abdominal pain, nausea, or vomiting. Review of Systems Except as stated in HPI: all other systems reviewed are Neg Past Family Social History Allergies: Coded Allergies: No Known Allergies (Unverified Allergy, Unknown, 04/15/18) Past Medical History Diabetes Tobacco abuse Past Surgical History Cardiac catheterization Cataracts Reported Medications Tresiba Flextouch Pen Inj (Insulin Degludec Inj) 300 unit/3 ML Pen 32 Units SQ HS Novolog Inj (Insulin Aspart) 1,000 Unit/10 Ml Vial 10 Units SQ Metformin (Metformin HCl) 1,000 Mg Tab Unknown Dose PO BIDPC Active Ordered Medications Acetaminophen (Tylenol) 325 mg Q4H PRN PO Last administered on 04/15/18at 06:39; Admin Dose 325 MG; Start 04/15/18 at 05:15 Aspirin (Aspirin Chew) 81 mg DAILY PO Last administered on 04/15/18at 09:28; Admin Dose 81 MG; Start 04/15/18 at 09:00 Atorvastatin Calcium (Lipitor) 40 mg HS PO; Start 04/15/18 at 21:00 Bivalirudin (Angiomax Inj) 250 mg STK-MED ONCE .ROUTE Last administered on at 03:55; Admin Dose 250 MG; Start 04/15/18 at 03:52; Stop 04/15/18 at 03:53; Status DC Dextrose (D50w (Vial) Inj) 50 ml UNSCH PRN IV PUSH; Start 04/15/18 at 08:30 Glucagon (Glucagon Inj) 1 mg UNSCH PRN OTHER; Start 04/15/18 at 08:30 Heparin Sodium (Porcine) (Heparin Inj) 5,600 units NOW STAT IV PUSH Last administered on 04/15/18at 03:00; Admin Dose 5,600 UNITS; Start 04/15/18 at 02:58; Stop 04/15/18 at 03:01; Status DC Heparin Sodium/ Sodium Chloride 1,500 ml @ As Directed STK-MED ONCE .ROUTE; Start 04/15/18 at 03:31; Stop 04/15/18 at 03:32; Status DC Insulin Aspart (NovoLOG SUPPLEMENTAL SCALE) 1 ACHS SLIDING SCALE SQ; Start 04/15 at 12:00 Insulin Detemir (Levemir Inj) 10 units Q12HR SQ Last administered on 04/15/18at 09 :28; Admin Dose 10 UNITS; Start 04/15/18 at 09:00 Lisinopril (Prinivil) 2.5 mg DAILY PO Last administered on 04/15/18at 09:29; Admin Dose 2.5 MG; Start 04/15/18 at 09:00 Metoclopramide HCl (Reglan Inj) 10 mg Q4H PRN IV PUSH; Start 04/15/18 at 05:15 Metoprolol Tartrate (Lopressor) 12.5 mg BID PO Last administered on 04/15/18at 09: 29; Admin Dose 12.5 MG; Start 04/15/18 at 09:00 Miscellaneous Information 1 ONCE ONCE XX; Start 04/15/18 at 05:15; Stop 04/15/18 at 05:21; Status DC Morphine Sulfate (Morphine Inj) 2 mg ONCE ONCE IV PUSH Last administered on 04/15at 03:15; Admin Dose 2 MG; Start 04/15/18 at 03:15; Stop 04/15/18 at 03:16; Status DC Morphine Sulfate (Morphine Inj) 4 mg STK-MED ONCE .ROUTE; Start 04/15/18 at 03:18 ; Stop 04/15/18 at 03:19; Status DC Morphine Sulfate (Morphine Inj) 10 mg STK-MED ONCE .ROUTE Last administered on at 03:45; Admin Dose 10 MG; Start 04/15/18 at 03:42; Stop 04/15/18 at 03:43; Status DC Oxycodone/ Acetaminophen (Percocet 5-325 Mg) 1 tab Q4H PRN PO Last administered on 04/15/18at 11:38; Admin Dose 1 TAB; Start 04/15/18 at 05:15 Phenylephrine HCl (Neosynephrine Inj) 10 mg STK-MED ONCE .ROUTE Last administered on 04/15/18at 04:11; Admin Dose 10 MG; Start 04/15/18 at 04:11; Stop 04/15/18 at 04:12; Status DC Sodium Chloride 1,000 ml @ 100 mls/hr Q10H IV Last administered on 04/15/18at 05: 06; Admin Dose 100 MLS/HR; Start 04/15/18 at 05:06; Stop 04/15/18 at 17:05 Sodium Chloride (NS Flush) 2 ml BID IV FLUSH; Start 04/15/18 at 09:00 Sodium Chloride (NS Flush) 2 ml UNSCH PRN IV FLUSH; Start 04/15/18 at 05:15 Temazepam (Restoril) 15 mg HS PRN PO; Start 04/15/18 at 05:15 Ticagrelor (Brilinta) 90 mg BID PO; Start 04/15/18 at 21:00 Ticagrelor (Brilinta) 180 mg STK-MED ONCE PO Last administered on 04/15/18at 04:35 ; Admin Dose 180 MG; Start 04/15/18 at 04:08; Stop 04/15/18 at 04:09; Status DC Social History Lives in [place], [place] Occasional EtOH use 1PPD tobacco Physical Exam Vital Signs Vital Signs Date Time Temp Pulse Resp B/P (MAP) Pulse Ox O2 Delivery O2 Flow Rate FiO2 04/15/18 11:00 97.9 83 20 123/68 (86) 95 04/15/18 07:40 20 04/15/18 07:00 98.1 90 18 123/68 (86) 94 04/15/18 07:00 89 04/15/18 06:00 100 04/15/18 05:03 98.0 92 16 126/84 (98) 96 04/15/18 05:00 92 04/15/18 04:54 94 04/15/18 04:11 88 124/80 04/15/18 03:30 92 16 115/72 (86) 99 Nasal Cannula 3.00 04/15/18 03:28 92 16 117/65 (82) 99 Nasal Cannula 3.00 04/15/18 03:25 91 04/15/18 03:19 96 16 111/66 (81) 99 Nasal Cannula 3.00 04/15/18 03:13 94 16 118/59 (78) 98 Room Air 04/15/18 03:10 96 16 97/61 (73) 97 Nasal Cannula 3.00 04/15/18 03:05 92 16 100/62 (75) 97 Nasal Cannula 3.00 04/15/18 02:56 97.8 83 14 97/55 (69) 90 Nasal Cannula 3.00 04/15/18 02:54 89 Nasal Cannula 3.00 04/15/18 02:53 97 4.00 04/15/18 02:53 97 Nasal Cannula 4.00 Physical Exam GENERAL: WN, WD male resting in bed in NAD. SKIN: Warm and dry. HEENT: AT/NC. Pupils equal and round. MMM. NECK: Supple no tender LAD or JVD. HEART: RRR no m/r/g. LUNGS: CTAB without wheezes or crackles. ABDOMEN: +BS, soft, NT, ND. EXTREMITIES: No LE edema. 2+ pedal pulses. NEURO: Awake and alert. PSYCH: Appropriate mood and affect. Laboratory Laboratory Tests Test 04/15/18 03:00 White Blood Count 7.6 Red Blood Count 4.53 Hemoglobin 13.9 Bedside Hemoglobin 12.9 Hematocrit 40.5 Bedside Hematocrit 38.0 Mean Corpuscular Volume 89.5 Mean Corpuscular Hemoglobin 30.6 Mean Corpuscular Hemoglobin Concent 34.2 Red Cell Distribution Width 13.0 Platelet Count 180 Mean Platelet Volume 8.1 Neutrophils (%) (Auto) 52.5 Lymphocytes (%) (Auto) 37.3 Monocytes (%) (Auto) 7.1 Eosinophils (%) (Auto) 2.5 Basophils (%) (Auto) 0.6 Neutrophils # (Auto) 4.0 Lymphocytes # (Auto) 2.9 Monocytes # (Auto) 0.5 Eosinophils # (Auto) 0.2 Basophils # (Auto) 0.0 CBC Comment DIFF FINAL Differential Comment Prothrombin Time 9.4 Prothromb Time International Ratio 0.9 Activated Partial Thromboplast Time 23.3 Bedside Sodium 140 Bedside Potassium 3.5 Bedside Chloride 99 Bedside Blood Urea Nitrogen 16 Bedside Creatinine 0.7 Bedside Glucose 295 Hemoglobin A1c 11.7 Calcium Level 8.2 Magnesium Level 1.7 Total Creatine Kinase 71 Troponin I 0.20 B-Type Natriuretic Peptide 5 Result Diagram: 04/15/18 0300 Imaging Chest X-Ray 04/15/18 0256 Signed Impressions: CONCLUSION: Small patchy area density in the right midlung. This could represent a mild are a of consolidation. Assessment and Plan Problem List: (1) ST elevation myocardial infarction (STEMI) of inferior wall ICD Code: I21.19 - ST elevation (STEMI) myocardial infarction involving other coronary artery of inferior wall Assessment and Plan 42 YOWM with history of DM and tobacco abuse admitted overnight for inferior wall STEMI. 1. Inferior STEMI - EMS noted ST-elevation in inferior leads and subsequently gave patient nitro and ASA (became hypotensive and responded to fluid bolus) - EKG demonstrating ST segment elevation in the inferior leads with troponin - Cardiology was called and patient taken for cath this AM, s/p RCA stent - Cath showed mildly impaired LV function with EF of 45% and inferior hypokinesis and left main and multivessel disease with total occlusion of the RCA - Start ASA, Lisinopril, metoprolol, Brilinta, statin 2. DM, poorly controlled with hyperglycemia - A1c 11.7 - Levemir 10 units BID - SSI per protocol - Consult clinical trial educator - Diabetic diet 3. Tobacco abuse - Counseled on cessation 4. Back pain - Percocet and Flexeril PRN - Encourage ambulation once post-cath bedrest complete 5. Hypokalemia - Mildly low at 3.5 and repleted with KCl - Monitor DVT prophylaxis: SCDs Code Status Anticipate d/c in 1-2 days once cleared by cardiology Leonora Gonzalez MD Apr 15, 2018 12:23
[2018-04-15] MEDS: INSULIN ASPART SUPPLEMENTAL SCALE SQ SCH ×3 (12:56→21:00)
--- NOTE | 2018-04-15 15:55 | EKG ---
Date Performed: 04/15/2018 Time Performed: 02:58:42 PTAGE: 42 years EKG: Sinus rhythm ACUTE CA NO PREVIOUS TRACING Inferior wall myocardial infarction also seen laterally in V4-V6 with reciprocal changes mainly in lead aVL and V3. This appears to be an extensive myocardial infarction. Clinical correlation strongly recommended. DOCTOR: Hugo Degroot Interpretating Date/Time 04/15/2018 15:54:43
--- NOTE | 2018-04-15 20:01 | MH ---
cc: Wong Polanco MD DATE OF ADMISSION: 04/15/2018 ADMISSION DIAGNOSES: 1. Acute inferior ST elevation myocardial infarction. 2. Diabetes mellitus. CHIEF COMPLAINT: Chest pain. HISTORY OF PRESENT ILLNESS: The patient underwent a STEMI catheterization this morning and I have realized that although I have dictated his cath report, I do not think that I have dictated his history and physical, so I plan to do that now. This is a 42-year-old man with history of diabetes and on longstanding tobacco. He has had a previous catheterization before showing coronary artery disease, but has continued to smoke. He developed the abrupt onset of severe left-sided chest pain, left heaviness and came to the laboratory technician in extremely severe pain. A STEMI was diagnosed and he was taken immediately to the laboratory technician and had the artery opened up about an hour after arrival. He has not had any other history of bleeding. He is from [facility]. PAST MEDICAL HISTORY: Includes diabetes, tobacco use. PAST SURGICAL HISTORY: Includes cataract surgery and cardiac catheterization. MEDICATIONS: Charted. ALLERGIES: NO KNOWN ALLERGIES. FAMILY HISTORY: Positive for heart disease. REVIEW OF SYSTEMS: Negative. PHYSICAL EXAMINATION: GENERAL: Well-developed, well-nourished man. He was in severe distress this morning. HEENT: Unremarkable. NECK: No JVD. No bruits. CHEST: Clear to auscultation. CARDIOVASCULAR: S1, S2. Regular rate and rhythm. No murmurs or gallops. ABDOMEN: Soft, nontender. EXTREMITIES: No clubbing, cyanosis or edema. DIAGNOSTIC DATA: EKG showed an acute inferior STEMI. ASSESSMENT AND PLAN: So far, the patient has undergone stenting of the right coronary artery and started on aspirin and Brilinta. I am dictating this at 7:16 p.m. He is completely free of chest pain. His ST elevation did not completely resolve, but his pain resolved post-catheterization, so I have no clinical grounds to suspect occlusion. His lipids are being assessed. He is being started on KONSTANTIN inhibitor, beta tex, statin, aspirin, Brilinta. I anticipate a hospital stay of 2-3 days. MD CARA Velazquez/JULES , 07:17 PM , 07:59 PM
[2018-04-15] MEDS: TICAGRELOR 90 MG TAB PO SCH (20:58)
[2018-04-15] MEDS ORDERED: ATORVASTATIN 40 MG TAB PO SCH (21:00)
[2018-04-16] VITALS (14 sets, daily range): BP systolic 98–110; BP diastolic 64–73; PULSE 62–75; RESP 16; TEMP 98.5–98.8; O2SAT 97–99
[2018-04-16 06:44] LABS: AUTOMATED NEUTROPHIL # 4.3 TH/MM3 (1.8-7.7); BASOPHIL % 0.4 % (0.0-2.0); EOSINOPHIL # 0.1 TH/MM3 (0-0.4); HEMATOCRIT 41.7 % (39.0-51.0); HEMOGLOBIN 14.1 GM/DL (13.0-17.0); LYMPH % 27.4 % (9.0-44.0); LYMPHOCYTE # 1.8 TH/MM3 (1.0-4.8); MEAN CELL VOLUME 91.2 FL (80.0-100.0); MEAN CORPUSCULAR HEMOGLOBIN 30.8 PG (27.0-34.0); MEAN CORPUSCULAR HGB CONC 33.7 % (32.0-36.0); MEAN PLATELET VOLUME 8.4 FL (7.0-11.0); MONO % 6.7 % (0.0-8.0); MONOCYTE # 0.4 TH/MM3 (0-0.9); NEUT % 63.5 % (16.0-70.0); PLATELET COUNT 131 TH/MM3 (150-450); RED BLOOD COUNT 4.57 MIL/MM3 (4.50-5.90); RED CELL DISTRIBUTION WIDTH 12.8 % (11.6-17.2); WHITE BLOOD COUNT 6.7 TH/MM3 (4.0-11.0)
[2018-04-16 07:02] LABS: BICARBONATE 24.8 MEQ/L (21.0-32.0); CALCIUM 8.2 MG/DL (8.5-10.1); CREATININE 0.63 MG/DL (0.60-1.30)
[2018-04-16 07:06] LABS: CHOLESTEROL/ HDL RATIO 4.44 RATIO
[2018-04-16] MEDS: INSULIN ASPART SUPPLEMENTAL SCALE SQ SCH (08:00)
[2018-04-16] MEDS: INSULIN DETEMIR 100 UNITS/ML VIAL SQ SCH (09:00)
[2018-04-16] MEDS: SODIUM CHLORIDE 0.9% FLUSH 10 ML FLUSH IV FLUSH SCH (09:00)
[2018-04-16] MEDS: ASPIRIN 81 MG CHEW TAB PO SCH (09:10)
[2018-04-16] MEDS: LISINOPRIL 5 MG TAB PO SCH (09:11)
[2018-04-16] MEDS: TICAGRELOR 90 MG TAB PO SCH (09:11)
[2018-04-16] MEDS: METOPROLOL TARTRATE 25 MG TAB PO SCH (09:12)
[2018-04-16] MEDS ORDERED: IOHEXOL 350 MG/ML 100 ML BTL (for Cath Lab) OTHER ONE (09:24)
--- NOTE | 2018-04-16 09:37 | EKG ---
Date Performed: 04/16/2018 Time Performed: 04:20:46 PTAGE: 42 years EKG: CONSIDER ACUTE ST ELEVATION TX Sinus rhythm Inferior and lateral ST elevation, CONSIDER ACUTE INFARCT Abnormal ECG PREVIOUS TRACING : 04/15/2018 18.59 Since the previous tracing, no significant change noted DOCTOR: Charles Zayas Interpretating Date/Time 04/16/2018 09:36:27
--- NOTE | 2018-04-16 09:38 | EKG ---
Date Performed: 04/15/2018 Time Performed: 18:59:10 PTAGE: 42 years EKG: CONSIDER ACUTE ST ELEVATION DE Sinus rhythm . Extensive ST elevation, CONSIDER ACUTE INFARCT Abnormal ECG PREVIOUS TRACING : 04/15/2018 02.58 Since the previous tracing, no significant change noted DOCTOR: Charles Zayas Interpretating Date/Time 04/16/2018 09:36:47
--- NOTE | 2018-04-16 11:00 | PD.CARD.PN ---
Subjective Subjective Remarks no angina, feels fine Objective Medications Current Medications Medications (Trade) Dose Ordered Sig/Viky Route Start Time Stop Time Status Last Admin (NS Flush) 2 ml UNSCH PRN IV FLUSH 04/15/18 05:15 (NS Flush) 2 ml BID IV FLUSH 04/15/18 09:00 04/16/18 09:00 (Tylenol) 325 mg Q4H PRN PO 04/15/18 05:15 04/15/18 06:39 (Percocet 5-325 Mg) 1 tab Q4H PRN PO 04/15/18 05:15 04/15/18 11:38 (Restoril) 15 mg HS PRN PO 04/15/18 05:15 (Aspirin Chew) 81 mg DAILY PO 04/15/18 09:00 04/16/18 09:10 (Brilinta) 90 mg BID PO 04/15/18 21:00 04/16/18 09:11 (Reglan Inj) 10 mg Q4H PRN IV PUSH 04/15/18 05:15 (Lopressor) 12.5 mg BID PO 04/15/18 09:00 04/16/18 09:12 (Prinivil) 2.5 mg DAILY PO 04/15/18 09:00 04/16/18 09:11 (Lipitor) 40 mg HS PO 04/15/18 21:00 04/15/18 21:00 (Levemir Inj) 10 units Q12HR SQ 04/15/18 09:00 04/16/18 09:00 (D50w (Vial) Inj) 50 ml UNSCH PRN IV PUSH 04/15/18 08:30 (Glucagon Inj) 1 mg UNSCH PRN OTHER 04/15/18 08:30 (NovoLOG SUPPLEMENTAL SCALE) 1 ACHS SLIDING SCALE SQ 04/15/18 12:00 04/15/18 17:47 (Flexeril) 5 mg Q8H PRN PO 04/15/18 12:15 Vital Signs / I&O Vital Signs Date Time Temp Pulse Resp B/P (MAP) Pulse Ox O2 Delivery O2 Flow Rate FiO2 04/16/18 10:00 68 04/16/18 09:00 66 04/16/18 08:00 68 04/16/18 07:30 98.5 69 16 98/64 (75) 97 04/16/18 07:00 65 04/16/18 06:00 62 04/16/18 05:00 68 04/16/18 04:32 75 16 103/64 (77) 99 04/16/18 04:00 66 04/16/18 03:00 69 04/16/18 02:00 66 04/16/18 01:00 66 04/16/18 00:00 74 04/15/18 23:00 70 16 101/58 (72) 98 04/15/18 23:00 63 04/15/18 22:00 76 04/15/18 21:00 80 04/15/18 20:30 98.6 76 16 106/68 (81) 97 04/15/18 20:00 70 04/15/18 19:00 82 04/15/18 18:00 76 04/15/18 17:00 68 04/15/18 16:00 64 04/15/18 15:00 98.2 75 16 108/69 (82) 97 04/15/18 15:00 76 04/15/18 14:00 80 04/15/18 13:00 80 04/15/18 12:39 20 04/15/18 12:00 82 04/15/18 11:00 72 04/15/18 11:00 97.9 83 20 123/68 (86) 95 I/O 04/15/18 04/15/18 04/15/18 04/16/18 04/16/18 04/16/18 07:00 15:00 23:00 07:00 15:00 23:00 Intake Total 1600 ml 480 ml Output Total 550 ml 1460 ml Balance -550 ml 140 ml 480 ml Intake Oral 600 ml 480 ml IV Total 1000 ml Output Urine Total 550 ml 1460 ml # Voids 2 # Bowel Movements 0 1 0 Physical Exam Alert chest clear CV S1S2 RRR, no gallop Abd soft Right groin OK Tele SR Laboratory Laboratory Tests Test 04/16/18 05:28 White Blood Count 6.7 TH/MM3 Red Blood Count 4.57 MIL/MM3 Hemoglobin 14.1 GM/DL Hematocrit 41.7 % Mean Corpuscular Volume 91.2 FL Mean Corpuscular Hemoglobin 30.8 PG Mean Corpuscular Hemoglobin Concent 33.7 % Red Cell Distribution Width 12.8 % Platelet Count 131 TH/MM3 Mean Platelet Volume 8.4 FL Neutrophils (%) (Auto) 63.5 % Lymphocytes (%) (Auto) 27.4 % Monocytes (%) (Auto) 6.7 % Eosinophils (%) (Auto) 2.0 % Basophils (%) (Auto) 0.4 % Neutrophils # (Auto) 4.3 TH/MM3 Lymphocytes # (Auto) 1.8 TH/MM3 Monocytes # (Auto) 0.4 TH/MM3 Eosinophils # (Auto) 0.1 TH/MM3 Basophils # (Auto) 0.0 TH/MM3 CBC Comment DIFF FINAL Differential Comment Blood Urea Nitrogen 16 MG/DL Creatinine 0.63 MG/DL Random Glucose 279 MG/DL Calcium Level 8.2 MG/DL Sodium Level 137 MEQ/L Potassium Level 3.8 MEQ/L Chloride Level 102 MEQ/L Carbon Dioxide Level 24.8 MEQ/L Anion Gap 10 MEQ/L Estimat Glomerular Filtration Rate 138 ML/MIN Total Creatine Kinase 610 U/L Creatine Kinase MB 28.3 NG/ML Creatine Kinase MB % 4.6 % Triglycerides Level 165 MG/DL Cholesterol Level 129 MG/DL LDL Cholesterol 67 MG/DL HDL Cholesterol 29.0 MG/DL Cholesterol/HDL Ratio 4.44 RATIO Assessment and Plan Problem List: (1) Stented coronary artery ICD Codes: Z95.5 - Presence of coronary angioplasty implant and graft (2) ST elevation myocardial infarction (STEMI) of inferior wall ICD Codes: I21.19 - ST elevation (STEMI) myocardial infarction involving other coronary artery of inferior wall (3) Tobacco abuse ICD Codes: Z72.0 - Tobacco use Status: Acute (4) Diabetes mellitus ICD Codes: E11.9 - Type 2 diabetes mellitus without complications Status: Acute Assessment and Plan Clinically doing well. Surprised EKG doesn't look better but asymptomatic. RCA stent result was good so will holf off on recath. Wong Polanco MD Apr 16, 2018 11:00
[2018-04-16] MEDS ORDERED: ASPI81 PO (11:38)
[2018-04-16] MEDS ORDERED: METO25TA3 PO (11:38)
[2018-04-16] MEDS ORDERED: LISI-519 PO (11:38)
[2018-04-16] MEDS ORDERED: ATOR40TA16 PO (11:38)
[2018-04-16] MEDS ORDERED: BRIL90TA PO (11:38)
--- NOTE | 2018-04-16 11:39 | HHI.PR ---
Subjective Remarks Follow up for STEMI s/p cath with stent to RCA. Patient is currently doing well. No CP, SOB, fever, chills. Patient and his significant other wants to go to [facility]. I discussed with Dr. Polanco (Cardiology) prior to discharging patient - Dr. Polanco is okay with discharging patient home. Objective Vitals Vital Signs Date Time Temp Pulse Resp B/P (MAP) Pulse Ox O2 Delivery O2 Flow Rate FiO2 04/16/18 10:00 68 04/16/18 09:00 66 04/16/18 08:00 68 04/16/18 07:30 98.5 69 16 98/64 (75) 97 04/16/18 07:00 65 04/16/18 06:00 62 04/16/18 05:00 68 04/16/18 04:32 75 16 103/64 (77) 99 04/16/18 04:00 66 04/16/18 03:00 69 04/16/18 02:00 66 04/16/18 01:00 66 04/16/18 00:00 74 04/15/18 23:00 70 16 101/58 (72) 98 04/15/18 23:00 63 04/15/18 22:00 76 04/15/18 21:00 80 04/15/18 20:30 98.6 76 16 106/68 (81) 97 04/15/18 20:00 70 04/15/18 19:00 82 04/15/18 18:00 76 04/15/18 17:00 68 04/15/18 16:00 64 04/15/18 15:00 98.2 75 16 108/69 (82) 97 04/15/18 15:00 76 04/15/18 14:00 80 04/15/18 13:00 80 04/15/18 12:39 20 04/15/18 12:00 82 I/O 04/15/18 04/15/18 04/15/18 04/16/18 04/16/18 04/16/18 07:00 15:00 23:00 07:00 15:00 23:00 Intake Total 1600 ml 480 ml Output Total 550 ml 1460 ml Balance -550 ml 140 ml 480 ml Intake Oral 600 ml 480 ml IV Total 1000 ml Output Urine Total 550 ml 1460 ml # Voids 2 # Bowel Movements 0 1 0 Result Diagram: 04/16/18 0528 04/16/18 0528 Imaging Last Impressions Chest X-Ray 04/15/18 0256 Signed Impressions: CONCLUSION: Small patchy area density in the right midlung. This could represent a mild are a of consolidation. Objective Remarks GENERAL: Alert, Oriented x 3, NAD. SKIN: Warm and dry. HEAD: Normocephalic. EYES: No scleral icterus. No injection or drainage. NECK: Supple, trachea midline. No JVD or lymphadenopathy. CARDIOVASCULAR: Regular rate and rhythm without murmurs, gallops, or rubs. RESPIRATORY: Breath sounds equal bilaterally. No accessory muscle use. GASTROINTESTINAL: Abdomen soft, non-tender, nondistended. MUSCULOSKELETAL: No cyanosis, or edema. BACK: Nontender without obvious deformity. No CVA tenderness. Procedures Cardiac cath 04/15/2018 1. Mildly impaired LV function with inferior hypokinesis. 2. Mildly elevated left ventricular end-diastolic pressure. 3. 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 A/P Problem List: (1) ST elevation myocardial infarction (STEMI) of inferior wall ICD Code: I21.19 - ST elevation (STEMI) myocardial infarction involving other coronary artery of inferior wall Assessment and Plan Mr. Nieto is a 42-year-old male with a history of diabetes mellitus who was admitted to the hospital with inferior STEMI. Patient was evaluated by cardiology and patient underwent cardiac catheterization on 04/15/2018. He received a stent to the RCA. Cath showed ejection fraction 45%. Cardiology initially advised patient to stay on 04/16/2018 and possible discharge 04/17/2018. However patient and his significant other expressed desire to go to [facility] for further cardiac evaluation. After discussing with Dr. Polanco ( cardiology), we discharged patient home. Patient's /significant other works for symptoms and inform me that she can get him to see public health dietitian within the next day. Patient is currently hemodynamically stable. No chest pain, shortness of breath, fever or chills. Discharge patient to home Condition on discharge: Improved Heart healthy, diabetic Diet as tolerated Ad Merline activity Rx written: New Medications: Aspirin (Tgt Aspirin) 81 Mg Chw Atorvastatin 40 Mg Tab Lisinopril 5 Mg Tab Metoprolol Tartrate 25 Mg Tab Ticagrelor (Brilinta) 90 Mg Tab Continued Medications: Insulin Aspart Inj (Novolog Inj) 1,000 Unit/10 Ml Vial Insulin Degludec Inj (Tresiba Flextouch Pen Inj) 300 unit/3 ML Pen Metformin 1,000 Mg Tab Follow-up with primary care physician Candace Mckeon DO Apr 16, 2018 11:39 am
== END 2018-04-16 12:24 | disposition home or self-care (01) | DRG 249 ==
LOC: NEPE 02:54 → NEDA 03:18 → HCIS 04:49
PROVIDERS: ADMIT Hospitalist; ATTEND Hospitalist
PROC: 02703DZ Dilation of Coronary Artery, One Artery with Intraluminal Device, Percutaneous Approach (ICD-10-PCS; principal; 2018-04-15)
PROC: 4A023N7 Measurement of Cardiac Sampling and Pressure, Left Heart, Percutaneous Approach (ICD-10-PCS; 2018-04-15)
PROC: B2111ZZ Fluoroscopy of Multiple Coronary Arteries using Low Osmolar Contrast (ICD-10-PCS; 2018-04-15)
PROC: B2151ZZ Fluoroscopy of Left Heart using Low Osmolar Contrast (ICD-10-PCS; 2018-04-15)
PROC: B41F1ZZ Fluoroscopy of Right Lower Extremity Arteries using Low Osmolar Contrast (ICD-10-PCS; 2018-04-15)
DX: I21.19 ST elevation (STEMI) myocardial infarction involving other coronary artery of inferior wall (principal); E11.65 Type 2 diabetes mellitus with hyperglycemia; I95.9 Hypotension, unspecified; E87.6 Hypokalemia; I25.10 Atherosclerotic heart disease of native coronary artery without angina pectoris; F17.200 Nicotine dependence, unspecified, uncomplicated; Z79.4 Long term (current) use of insulin; Z82.49 Family history of ischemic heart disease and other diseases of the circulatory system
CPT/HCPCS: 71045; 80048; 80061; 82310; 82550; 82552; 82948; 83036; 83735; 83880; 84484; 85025; 85610; 85730; 92941; 93005; 93458; C1725; C1760; C1769; C1874; C1887; C1893; G0269; J0583; J1644; J1815; J2270; J2370; J7030; Q9967